=== PATIENT | female | born 1970 | race Caucasian/White ===

== ENCOUNTER 2022-11-07 14:27 | Outpatient (RCR) | payer OTHER, SELFPAY | END 2023-01-23 09:27 | disposition home or self-care (01) | PROVIDERS: Visit Provider Orthopaedic Surgery Sports Medicine | DX: M76.61 Achilles tendinitis, right leg (principal); M25.561 Pain in right knee; M25.562 Pain in left knee; Z51.89 Encounter for other specified aftercare | CPT/HCPCS: 97110; 97140; 97161 ==